=== PATIENT | male | born 1985 | race Caucasian/White ===

== ENCOUNTER 2019-04-28 18:01 | Emergency (ER) | payer SELFPAY ==
[2019-04-28] MEDS ORDERED: IPRATROPIUM/ALBUTEROL 0.5-2.5 MG/3 ML AMPUL NEB ONE ×3 (19:02→23:30)
[2019-04-28] MEDS ORDERED: NORMAL SALINE 1000 ML 1,000 ML IV ONE (19:02)
[2019-04-28] MEDS ORDERED: IBUPROFEN 800 MG TABLET PO ONE (19:04)
--- NOTE | 2019-04-28 19:04 | ER Document Report ---
ED Medical Screen (RME) - General Chief Complaint: Flu Symptoms Stated Complaint: FLU SYMPTOMS Time Seen by Provider: 04/28/19 18:55 TRAVEL OUTSIDE OF THE [place] IN LAST 30 DAYS: No - HPI Notes: 04/28/19 19:03 33-year-old male to the emergency department with complaints of flulike symptoms that have been getting progressively worse in the past 2 days. He states he initially started with facial congestion and congestion in the chest 2 days ago. But then he got more and more congested in his chest and now he feels short of breath. He states that that he is gasping for air particularly after just wak ing up and having a hard time. He states that he has had a fever upwards of 103. His daughter is currently hospitalized in [place] for dehydration from the flu. He denies any nausea vomiting or diarrhea. He has been taking [id number] medicines to help him. He does have a history of asthma as a child but has not had any problems with that as an adult. He is a smoker. I performed a brief medical screening exam on the patient determined that the patient needs further evaluation and management by main side provider. I have placed initial orders to help expedite care. - Related Data Allergies/Adverse Reactions: No Known Allergies Allergy (Unverified 04/28/19 18:58) Past Medical History - Social History Chew tobacco use (# tins/day): No Frequency of alcohol use: None Drug Abuse: None Physical Exam - Vital signs Vitals: Temp Pulse Resp BP Pulse Ox 100.1 F 116 H 16 156/99 H 97 04/28/19 18:28 04/28/19 18:28 04/28/19 18:28 04/28/19 18:28 04/28/19 18:28 Course - Vital Signs Vital signs: Temp Pulse Resp BP Pulse Ox 100.1 F 116 H 16 156/99 H 97 04/28/19 18:28 04/28/19 18:28 04/28/19 18:28 04/28/19 18:28 04/28/19 18:28
--- NOTE | 2019-04-28 19:53 | RADIOLOGY REPORT (SQ) ---
EXAM DESCRIPTION: CHEST 2 VIEWS COMPLETED DATE/TIME: 04/28/2019 7:14 pm REASON FOR STUDY: chest pain COMPARISON: None. EXAM PARAMETERS: NUMBER OF VIEWS: two views TECHNIQUE: Digital Frontal and Lateral radiographic views of the chest acquired. RADIATION DOSE: NA LIMITATIONS: none FINDINGS: LUNGS AND PLEURA: No opacities, masses or pneumothorax. No pleural effusion. MEDIASTINUM AND HILAR STRUCTURES: No masses or contour abnormalities. HEART AND VASCULAR STRUCTURES: Heart normal size. No evidence for failure. BONES: No acute findings. HARDWARE: None in the chest. OTHER: No other significant finding. IMPRESSION: NO ACUTE RADIOGRAPHIC FINDING IN THE CHEST. TECHNICAL DOCUMENTATION: JOB ID: [id number] 2010 [employer]- All Rights Reserved Reading location - IP/workstation name: [email or web address]
[2019-04-28 20:44] LABS: ABSOLUTE LYMPHOCYTES (AUTO) 1.4 10^3/uL (0.5-4.7); ABSOLUTE MONOCYTES (AUTO) 0.8 10^3/uL (0.1-1.4); ABSOLUTE NEUT (AUTO) 3.3 10^3/uL (1.7-8.2); BASOPHILS % (AUTO) 0.4 % (0-2); EOSINOPHILS % (AUTO) 0.6 % (0-6); HEMATOCRIT 42.3 % (37.9-51.0); HEMOGLOBIN 14.9 g/dL (13.5-17.0); LYMPHOCYTES % (AUTO) 25.4 % (13-45); MEAN CORPUSCULAR HEMOGLOBIN 30.6 pg (27.0-33.4); MEAN CORPUSCULAR HGB CONC 35.2 g/dL (32.0-36.0); MEAN CORPUSCULAR VOLUME 87 fl (80-97); MONOCYTES % (AUTO) 13.6 % (3-13); PLATELET COUNT 159 10^3/uL (150-450); RED BLOOD COUNT 4.87 10^6/uL (4.35-5.55); TOTAL CELLS COUNTED % (AUTO) 100 %; WHITE BLOOD COUNT 5.6 10^3/uL (4.0-10.5)
[2019-04-28 20:58] LABS: A TYPE INFLUENZA AG POSITIVE (NEGATIVE); B INFLUENZA AG NEGATIVE (NEGATIVE)
[2019-04-28 21:04] LABS: ALBUMIN 4.7 g/dL (3.5-5.0); ALKALINE PHOSPHATASE 74 U/L (38-126); ANION GAP 9 (5-19); ASPARTATE AMINO TRANSFERASE 149 U/L (17-59); BILIRUBIN,DIRECT 0.3 mg/dL (0.0-0.4); BILIRUBIN,TOTAL 0.8 mg/dL (0.2-1.3); BLOOD UREA NITROGEN 14 mg/dL (7-20); CALCIUM 9.4 mg/dL (8.4-10.2); CARBON DIOXIDE 32 mmol/L (22-30); CHLORIDE 100 mmol/L (98-107); GLUCOSE 104 mg/dL (75-110); POTASSIUM 4.2 mmol/L (3.6-5.0); TOTAL PROTEIN 7.8 g/dL (6.3-8.2)
[2019-04-28] MEDS ORDERED: IBUPROFEN 800 MG TABLET ONE (21:09)
[2019-04-28] MEDS ORDERED: METHYLPREDNISOLONE INJ 125 MG/2 ML SDV IV ONE (23:29)
--- NOTE | 2019-04-28 23:37 | ER Document Report ---
ED Flu Like - General Chief Complaint: Flu Symptoms Stated Complaint: FLU SYMPTOMS Time Seen by Provider: 04/28/19 18:55 Notes: Patient is a 33-year-old male that comes emergency department for chief complaints of flulike symptoms that have been getting worse for the past 2 days. He states he started with congestion and cough, now he has chest congestion, he has been having fevers, cough, wheezing. He denies vomiting, chest pain, headache. He states she was exposed to his daughter who was positive for influenza, she was vomiting and was hospitalized for dehydration. Patient states he had a history of asthma as a child, stopped smoking 2 years ago, denies any diagnosed medical history or daily medications. TRAVEL OUTSIDE OF THE [place] IN LAST 30 DAYS: No - Related Data Allergies/Adverse Reactions: No Known Allergies Allergy (Unverified 04/28/19 18:58) Past Medical History - General Information source: Patient - Social History Smoking Status: Former Smoker Chew tobacco use (# tins/day): No Frequency of alcohol use: None Drug Abuse: None Lives with: Family Family History: Reviewed & Not Pertinent Patient has suicidal ideation: No Patient has homicidal ideation: No Surgical Hx: Negative - Immunizations Hx Diphtheria, Pertussis, Tetanus Vaccination: Yes Review of Systems - Review of Systems Constitutional: See HPI EENT: See HPI Cardiovascular: No symptoms reported Respiratory: See HPI Gastrointestinal: No symptoms reported Genitourinary: No symptoms reported Male Genitourinary: No symptoms reported Musculoskeletal: No symptoms reported Skin: No symptoms reported Hematologic/Lymphatic: No symptoms reported Neurological/Psychological: No symptoms reported Physical Exam - Vital signs Vitals: Temp Pulse Resp BP Pulse Ox 100.1 F 116 H 16 156/99 H 97 04/28/19 18:28 04/28/19 18:28 04/28/19 18:28 04/28/19 18:28 04/28/19 18:28 - Notes Notes: GENERAL: Alert, interacts well. No acute distress. HEAD: Normocephalic, atraumatic. EYES: Pupils equal, round, and reactive to light. Extraocular movements intact. ENT: Oral mucosa moist, tongue midline. Oropharynx unremarkable. Airway patent. Minimal congestion, no nasal septal hematoma, TM's intact. NECK: Full range of motion. Supple. Trachea midline. LUNGS: Expiratory wheezes and occasional congested cough but no respiratory distress or tachypnea HEART: Regular rate and rhythm. No murmur ABDOMEN: Soft, non-tender. Non-distended. EXTREMITIES: Moves all 4 extremities spontaneously. No edema, normal radial and dorsalis pedis pulses bilaterally. No cyanosis. BACK: no cervical, thoracic, lumbar midline tenderness. No saddle anesthesia, normal distal neurovascular exam. Moves all extremities in full range of motion. NEUROLOGICAL: Alert and oriented x3. Normal speech. Cranial nerves II through XII grossly intact. PSYCH: Normal affect, normal mood. SKIN: Slightly flushed Course - Re-evaluation Re-evalutation: On my evaluation patient has expiratory wheezes and congested cough. He does not have tachypnea or hypoxia however. CBC, chemistry unremarkable, influenza A is positive. Chest x-ray unremarkable without pneumonia. After steroids, IV fluids, duo nebs, patient reevaluated and he states he feels much better. Wheezing has almost completely resolved, patient is requesting discharge. Patient ambulates without difficulty or shortness of breath. Patient will be provided with albuterol, steroids, I did discuss Tamiflu but this was declined after discussion. Provided with Phenergan for nausea and headaches. Provided with work release. Discussed close follow-up and strict return precautions. Patient states appreciation and agreement. Stable and well-appearing at time of discharge. - Vital Signs Vital signs: Temp Pulse Resp BP Pulse Ox 98.7 F 96 18 152/89 H 100 04/29/19 02:02 04/29/19 01:59 04/29/19 01:59 04/29/19 01:59 04/29/19 01:59 - Laboratory Result Diagrams: 04/28/19 20:25 04/28/19 20:25 Laboratory results interpreted by me: 04/28/19 04/28/19 20:25 20:25 [place] % (Auto) 13.6 H Carbon Dioxide 32 H AST 149 H ALT 159 H Discharge - Discharge Clinical Impression: Influenza A, Cough, Wheezing Condition: Stable Disposition: HOME, SELF-CARE Additional Instructions: You have influenza A. This is a viral illness that takes time to resolve. Because of your cough, wheezing, you have been provided with albuterol and steroids (prednisone). Please take as prescribed. You can take 1000 mg of Tylenol and 600 mg of ibuprofen every 6 hours as needed for body aches, chills, fever. Take Phenergan if needed for nausea/headache. Take the Sudafed decongestion. Drink plenty fluids and rest. Follow-up with primary care. Return if you worsen including difficulty breathing, uncontrolled vomiting, or any other concerning symptoms. Prescriptions: RX: Prednisone [Deltasone 20 mg Tablet] 3 tab PO DAILY 5 Days #15 tablet Promethazine HCl [Phenergan 25 mg Tablet] 25 mg PO Q6H PRN #20 tablet PRN Reason: RX: Albuterol Sulfate [Proair HFA Inhalation Aerosol 8.5 gm MDI] 2 puff IH Q4H PRN #1 mdi PRN Reason: Pseudoephedrine HCl [Sudafed 12 Hour] 120 mg PO Q12 PRN #14 tablet.er PRN Reason: Forms: Return to Work
[2019-04-29] MEDS ORDERED: ALBUTEROL SULFATE HFA (90 MCG/PUFF) 8 GM MDI (1 MDI/ER DISP) IH ONE (01:44)
[2019-04-29 02:01] VITALS: BP 152/89
== END 2019-04-29 02:02 | disposition home or self-care (01) ==
LOC: ER 18:01
DX: J10.1 Influenza due to other identified influenza virus with other respiratory manifestations (principal); R05 Cough; J45.909 Unspecified asthma, uncomplicated; R09.81 Nasal congestion; R09.89 Other specified symptoms and signs involving the circulatory and respiratory systems; R50.9 Fever, unspecified; Z87.891 Personal history of nicotine dependence
CPT/HCPCS: 94640 ×2; 99283; 96361; 96374; 36415; 85025; 80053; 87804; 71046; J2930; J7030; J3490; J7620 ×2